=== PATIENT | female | born 2005 | race Caucasian/White ===

== ENCOUNTER 2023-04-04 17:30 | Emergency (ER) | payer MEDICAID ==
[~2023-04-04] VITALS: Ht 162.6 cm; Wt 104.5 kg
[2023-04-04 17:50] VITALS: TEMP 98.1
[2023-04-04 18:03] LABS: COLLECTION METHOD CLEAN CATCH
[2023-04-04 18:42] LABS: PH 5.5 (5.0-8.5); URINE APPEARANCE Cloudy (CLEAR/HAZY); URINE BLOOD 1+ (NEGATIVE); URINE COLOR Yellow (YELLOW); URINE GLUCOSE Negative (NEGATIVE); URINE KETONE TRACE (NEGATIVE); URINE NITRATE Negative (NEGATIVE); URINE PROTEIN(semi-quant) Negative (NEGATIVE)
[2023-04-04 18:43] LABS: URINE BACTERIA Many /hpf (NONE SEEN)
[2023-04-04] MEDS ORDERED: metroNIDAZOLE 250 MG TAB PO ONE (19:45)
[2023-04-04] MEDS ORDERED: Cefuroxime 250 MG TAB PO ONE (19:45)
[2023-04-04] MEDS ORDERED: TEMOVATE0.052 TOP (19:56)
[2023-04-04] MEDS ORDERED: CEFTIN 250250 MG/TAB PO (19:56)
[2023-04-04 20:15] VITALS: BP 144/93; PULSE 88
== END 2023-04-04 20:15 | disposition home or self-care (01) ==
LOC: COL.ER 17:30
PROVIDERS: Family Medicine
DX: A59.01 Trichomonal vulvovaginitis (principal); N39.0 Urinary tract infection, site not specified; F17.290 Nicotine dependence, other tobacco product, uncomplicated

== ENCOUNTER 2023-07-15 20:48 | Emergency (ER) | payer SELFPAY ==
[~2023-07-15] VITALS: Ht 162.6 cm; Wt 100.0 kg
[~2023-07-15 20:48] MED LIST: CEFTIN 250250 MG/TAB PO; TEMOVATE0.052 TOP; ZOVIRAX400 MG PO
[2023-07-15 20:58] VITALS: BP 112/74; TEMP 97.4
[2023-07-15 23:23] VITALS: PULSE 64
== END 2023-07-15 23:25 | disposition home or self-care (01) ==
LOC: COL.ER 20:48
DX: S80.12XA Contusion of left lower leg, initial encounter (principal); F17.290 Nicotine dependence, other tobacco product, uncomplicated; V89.2XXA Person injured in unspecified motor-vehicle accident, traffic, initial encounter; Y92.410 Unspecified street and highway as the place of occurrence of the external cause